=== PATIENT | male | born 1950 | race Caucasian/White ===

== ENCOUNTER 2018-01-24 18:15 | Emergency (ER) | payer OTHER, MEDICARE ==
[~2018-01-24] VITALS: Ht 180.3 cm; Wt 98.0 kg
[~2018-01-24 18:15] MED LIST: ASPI81CH PO; ATOR20 PO; Bactrim Ds Tab1 EACH PO; Keflex500 MG PO; LEVO750 PO; Lisinopril2.5 MG PO; METF500 PO; Zofran Odt4 MG SL
[2018-01-24 19:18] LABS: BASOPHILS ABSOLUTE AUTO 0.04 K/mm3 (0.00-0.23); BASOPHILS PERCENT AUTO 0 % (0-2); EOSINOPHILS ABSOLUTE AUTO 0.04 K/mm3 (0.00-0.68); EOSINOPHILS PERCENT AUTO 0 % (0-6); Hematocrit 41.8 % (37.0-53.0); IMMATURE GRAN ABSOLUTE AUTO 0.09 K/mm3 (0.00-0.10); IMMATURE GRAN PERCENT AUTO 1 % (0-1); LYMPHOCYTES ABSOLUTE AUTO 1.15 K/mm3 (0.84-5.20); LYMPHOCYTES PERCENT AUTO 8 % (21-46); MONOCYTES ABSOLUTE AUTO 1.45 K/mm3 (0.16-1.47); MONOCYTES PERCENT AUTO 9 % (4-13); Mean Corpuscular HGB 29.3 pg (26.0-34.0); Mean Corpuscular HGB Conc 33.5 g/dL (31.5-36.5); Mean Corpuscular Volume 87 fL (80-100); Mean Platelet Volume 9.7 fL (9.1-12.4); NEUTROPHILS ABSOLUTE AUTO 12.66 K/mm3 (1.96-9.15); NEUTROPHILS PERCENT AUTO 82 % (41-73); Platelet Count 223 K/mm3 (150-400); RDW Coefficient Variation 12.7 % (11.7-14.2); RDW Standard Deviation 40.8 fL (35.1-46.3); Red Blood Cell Count 4.78 M/mm3 (4.30-5.90); White Blood Cell Count 15.43 K/mm3 (4.00-11.30)
[2018-01-24 19:39] LABS: Alanine Aminotransfer (ALT/SGP 29 U/L (12-78); Albumin, Blood 3.7 g/dL (3.4-5.0); Albumin/Globulin Ratio 0.9 (0.8-1.8); Alk Phos 92 U/L (50-136); Anion Gap 9 mmol/L (6-16); Aspartate Aminotrans (AST/SGOT 20 U/L (12-37); Bilirubin, Total 0.8 mg/dL (0.1-1.0); Blood Urea Nitrogen 12 mg/dL (8-24); Bun/Creatinine Ratio 15.7 (12.0-20.0); CO2, Blood 25 mmol/L (21-32); Chloride, Blood 101 mmol/L (98-108); Creatinine, Blood 0.77 mg/dL (0.60-1.20); Globulin, Blood 3.9 g/dL (2.2-4.0); Glomerular Filtration Rate >60 (60-); Glucose, Blood 190 mg/dL (70-99); Potassium, Blood 3.9 mmol/L (3.5-5.5); Sodium, Blood 135 mmol/L (136-145); Total Protein, Blood 7.6 g/dL (6.4-8.2)
[2018-01-24 21:12] LABS: Source, Urine Clean Catch
[2018-01-24 21:15] LABS: Appearance, Urine Hazy (Clear); Bilirubin, Urine Neg (Neg); Blood, Urine 3+ (Neg); Color, Urine Yellow (P-Yellow); Glucose Qualitative, Urine Neg (Neg); Ketones, Urine 2+ (Neg); Leukocyte Esterase, Urine 3+ (Neg); Nitrite, Urine Pos (Neg); Protein, Urine 2+ (Neg); Specific Gravity, Urine 1.015 (1.003-1.022); Urobilinogen, Urine 2+ (Normal)
[2018-01-24 21:20] LABS: Bacteria Many /hpf; Red Blood Cells, Urine 0-2 /hpf (0-2); Squamous Epithelial Cells Few /hpf (Few)
[2018-01-24 21:21] LABS: Uric Acid Crystals Many /hpf
[2018-01-24] MEDS ORDERED: CIPR500 PO (21:50)
== END 2018-01-24 22:00 | disposition home or self-care (01) ==
LOC: ER 18:15
PROVIDERS: Emergency Medicine
DX: N12 Tubulo-interstitial nephritis, not specified as acute or chronic (principal); E11.9 Type 2 diabetes mellitus without complications
CPT/HCPCS: 36415; 74176; 80053; 81001; 83690; 85025; 87077; 87086; 87186; 93005; 93010; 99284

== ENCOUNTER 2020-11-29 06:17 | Day surgery (SDC) | payer OTHER, MEDICARE ==
[~2020-11-29] VITALS: Ht 180.3 cm; Wt 91.0 kg
[~2020-11-29 06:17] MED LIST changes: +Aspir 8181 MG PO; +CIPR500 PO; +ESCI10 PO; +JARDIANCE10 MG PO; +METO25ER PO; +NITROGLYCERIN0.4 M1 SL
== END 2020-11-29 08:19 | disposition home or self-care (01) ==
LOC: ORSCSDS 06:17
PROVIDERS: Surgery
PROC: 0DBM8ZX Excision of Descending Colon, Via Natural or Artificial Opening Endoscopic, Diagnostic (ICD-10-PCS; principal; 2020-11-29 07:30)
DX: R19.4 Change in bowel habit (principal); D12.4 Benign neoplasm of descending colon; Z86.010 Personal history of colon polyps; K57.30 Diverticulosis of large intestine without perforation or abscess without bleeding; E11.9 Type 2 diabetes mellitus without complications; I10 Essential (primary) hypertension; I25.10 Atherosclerotic heart disease of native coronary artery without angina pectoris; Z79.82 Long term (current) use of aspirin; Z79.84 Long term (current) use of oral hypoglycemic drugs; Z79.899 Other long term (current) drug therapy
CPT/HCPCS: 82947; 88305; J0461; J2405; J2704; J7120

== ENCOUNTER → 2020-12-10 | Outpatient (CLI) | payer OTHER, MEDICARE | END | disposition home or self-care (01) | LOC: LAB 15:54 → LAB SHORT 15:54 | DX: D48.5 Neoplasm of uncertain behavior of skin (principal) | CPT/HCPCS: 88305 ==

== ENCOUNTER → 2021-01-28 | Outpatient (CLI) | payer OTHER, MEDICARE | END | disposition home or self-care (01) | LOC: LAB SHORT 14:49 → LAB 14:49 | DX: D48.5 Neoplasm of uncertain behavior of skin (principal) | CPT/HCPCS: 88305 ==

== ENCOUNTER 2023-12-04 04:29 | Emergency (ER) | payer MEDICARE ==
[~2023-12-04] VITALS: Ht 172.7 cm; Wt 90.7 kg
[2023-12-04] MEDS ORDERED: Amaryl1 MG PO (05:02)
[2023-12-04] MEDS ORDERED: OZEMPIC2 MG/0.75 SQ (05:02)
[2023-12-04 05:03] LABS: Source, Urine Clean Catch
[2023-12-04] MEDS ORDERED: OMEP20ER PO (05:03)
[2023-12-04 05:07] LABS: BASOPHILS ABSOLUTE AUTO 0.09 K/mm3 (0.00-0.23); BASOPHILS PERCENT AUTO 1 % (0-2); EOSINOPHILS ABSOLUTE AUTO 0.11 K/mm3 (0.00-0.68); EOSINOPHILS PERCENT AUTO 1 % (0-6); Hematocrit 50.9 % (37.0-53.0); Hemoglobin 16.7 g/dL (13.5-17.5); IMMATURE GRAN ABSOLUTE AUTO 0.12 K/mm3 (0.00-0.10); IMMATURE GRAN PERCENT AUTO 1 % (0-1); LYMPHOCYTES ABSOLUTE AUTO 2.24 K/mm3 (0.84-5.20); LYMPHOCYTES PERCENT AUTO 12 % (21-46); MONOCYTES ABSOLUTE AUTO 0.96 K/mm3 (0.16-1.47); MONOCYTES PERCENT AUTO 5 % (4-13); Mean Corpuscular HGB 29.9 pg (26.0-34.0); Mean Corpuscular HGB Conc 32.8 g/dL (31.5-36.5); Mean Corpuscular Volume 91 fL (80-100); Mean Platelet Volume 10.6 fL (9.1-12.4); NEUTROPHILS ABSOLUTE AUTO 14.91 K/mm3 (1.96-9.15); NEUTROPHILS PERCENT AUTO 81 % (41-73); Platelet Count 249 K/mm3 (150-400); RDW Coefficient Variation 12.7 % (11.7-14.2); RDW Standard Deviation 42.4 fL (35.1-46.3); Red Blood Cell Count 5.58 M/mm3 (4.30-5.90); White Blood Cell Count 18.43 K/mm3 (4.00-11.30)
[2023-12-04 05:08] LABS: Appearance, Urine Clear (Clear); Bilirubin, Urine Neg (Neg); Blood, Urine 2+ (Neg); Glucose Qualitative, Urine 4+ (Neg); Ketones, Urine 1+ (Neg); Leukocyte Esterase, Urine 1+ (Neg); Nitrite, Urine Neg (Neg); Protein, Urine Neg (Neg); Urobilinogen, Urine NORM (Normal)
[2023-12-04 05:19] LABS: Albumin, Blood 4.1 g/dL (3.4-5.0); Albumin/Globulin Ratio 1.2 (0.8-1.8); Bilirubin, Total 0.6 mg/dL (0.1-1.0); Bun/Creatinine Ratio 21.8 (12.0-20.0); Creatinine, Blood 0.78 mg/dL (0.60-1.20); Globulin, Blood 3.4 g/dL (2.2-4.0); Potassium, Blood 4.4 mmol/L (3.5-5.5); Total Protein, Blood 7.5 g/dL (6.4-8.2)
[2023-12-04 05:23] LABS: Color, Urine Pale Yellow (P-Yellow)
[2023-12-04 05:25] LABS: Bacteria Few /hpf; Squamous Epithelial Cells Few /hpf (Few)
[2023-12-04 05:45] LABS: Influenza A, PCR NEGATIVE (NEGATIVE); Influenza B, PCR NEGATIVE (NEGATIVE); Resp Syncytial Virus, PCR NEGATIVE (NEGATIVE); SARS-Cov-2 (COVID-19) PCR, MMC NEGATIVE (NEGATIVE)
[2023-12-04] MEDS ORDERED: CEFP200 PO (08:43)
[2023-12-04 09:00] VITALS: BP 117/58
[2023-12-04] MEDS ORDERED: PROMETHAZINE12.5 M1 PT (09:31)
== END 2023-12-04 09:27 | disposition home or self-care (01) ==
LOC: ER 04:29
PROVIDERS: Emergency Medicine
DX: N39.0 Urinary tract infection, site not specified (principal); Z87.442 Personal history of urinary calculi; Z11.52 Encounter for screening for COVID-19; I10 Essential (primary) hypertension; E11.9 Type 2 diabetes mellitus without complications; I25.10 Atherosclerotic heart disease of native coronary artery without angina pectoris; E78.5 Hyperlipidemia, unspecified; E78.00 Pure hypercholesterolemia, unspecified; Z79.84 Long term (current) use of oral hypoglycemic drugs; Z79.82 Long term (current) use of aspirin; Z79.899 Other long term (current) drug therapy
CPT/HCPCS: 0241U; 74177; 80053; 81001; 83690; 85025; 87086; 93005; 93010; 96374-59; 96375; 99285-25; J1885; J2405; J2765; Q9967

== ENCOUNTER 2025-10-25 08:50 | Day surgery (SDC) | payer MEDICARE ==
[2025-10-25] VITALS (11 sets, daily range): BP systolic 131–140; BP diastolic 71–85
[~2025-10-25] VITALS: Ht 180.3 cm; Wt 90.6 kg
[~2025-10-25 08:50] MED LIST changes: +Amaryl1 MG PO; +CEFP200 PO; +CeFAZolin Sodium 2,000 MG in NS 100 ML IV SCH; +Chlorhexidine Mouth Care 15 ML UDC MT SCH; +FISH OIL 1,0001 EA10 PO; +LEVSOD112 PO; +OMEP20ER PO; +OZEMPIC2 MG/0.75 SQ; +PROMETHAZINE12.5 M1 PT; +Ropivacaine 0.5% HCl/Pf 123.125 MG,EPINEPHrine HCL 0.25 MG,Ketorolac Tromethamine 15 MG... INFIL SCH; +Tranexamic Acid 100 ML IV SCH; +VITAMIN D350 MC3 PO
[2025-10-25] MEDS ORDERED: OZEMPIC0.25 MG/02 SQ (09:07)
[2025-10-25] MEDS ORDERED: Magnesium Hydroxide Conc 10 ML UDC PO PRN (10:25)
[2025-10-25] MEDS ORDERED: Ondansetron HCl 2 MG / ML 2ML Vial IV PRN ×2 (10:25→11:45)
[2025-10-25] MEDS ORDERED: HYDROmorphone HCl/Pf 1MG SYR IV PRN ×3 (10:25→11:45)
[2025-10-25] MEDS ORDERED: Metoclopramide HCl 5MG / ML 2ML Vial IV PRN (10:25)
[2025-10-25] MEDS ORDERED: FLU VACC TS2025(65UP)/MF59C/PF 45 MCG/0.5 ML SYRINGE IM SCH (10:30)
[2025-10-25] MEDS ORDERED: Midazolam HCl 1MG / ML 2ML Vial ONE (10:51)
[2025-10-25] MEDS ORDERED: ePHEDrine Sulfate 50 MG/ML 1ML Injection ONE (11:30)
[2025-10-25] MEDS ORDERED: Insulin Regular 100 UNIT/ML 10ML Vial SC SCH (11:30)
[2025-10-25] MEDS ORDERED: FentaNYL Citrate 50 MCG/ML 2 ML Injection IV PRN ×2 (11:45→11:50)
--- NOTE | 2025-10-25 16:30 | NUR ---
P.t is awake in bed whenhe welcomes my visit. Pt. is pleasant. Facilitated a life review and considered matters of parviz and belief. Pt. verbalized an expectation that he may go home this evening. Pt. displayed evidence of having his spirits uplifted and verbalized gratitude fo rthe spiritual care visit.
[2025-10-25] MEDS ORDERED: ACET500 PO (16:36)
[2025-10-25] MEDS ORDERED: OXAYDO5 M1 PO (16:37)
[2025-10-25] MEDS ORDERED: ONDA4ODT MM (16:38)
[2025-10-25] MEDS ORDERED: XARELTO20 MG PO (16:38)
[2025-10-25] MEDS ORDERED: SULTRIDS PO (16:38)
[2025-10-25] MEDS ORDERED: MetFORMIN HCl 500 mg PO SCH (17:00)
--- NOTE | 2025-10-25 17:49 | NUR ---
ASSUMED CARE OF PT @1450 AXO4. SENSATION INTACT. COLDPACK INPLACE. TELFA/TEGADERM IN PLACE - CDI. ACEWRAP IN PLACE. TXA INFUSED X2 DOSES PRE ADMISSION. 1L LR INFUSED. PT VOIDED. TOLERATED FULL DINNER TRAY. DENIES NAUSEA. PT HAS DENIED NEED FOR PAIN MEDS. WANTING TO GO HOME. STOOD AND AMBULATED THE HALLWAY TWICWE WITH RNS. INSTRUCTIONS PROVIDED TO PT. DC INSTRUCTIONS PRINTED OUT. EDUCATED PATIENT AND SPOUSE REGARDING POSTOP REGIMEN. PROVIDED WITH PRN USE AQUACEL IF NEEDED AT HOME. BELONGINGS PACKED UP ALONG WITH COLD PACK. IV PULLED. PT GETTING DRESSED. AWAITING CLARIFICATION FOR DR LEE REGARDING ASPIRIN AND XARELTO CONCURRENT ORDER - AWAITING ANSWER AND THEN PT WILL BE DC'D.
[2025-10-25] MEDS ORDERED: Ketorolac Tromethamine 15mg Vial IV SCH (18:00)
--- NOTE | 2025-10-25 18:07 | NUR ---
DC'D VIA WHEELCHAIR TO VEHICLE @1800
[2025-10-25] MEDS ORDERED: CeFAZolin Sodium 2,000 MG in NS 100 ML IV SCH (19:30)
[2025-10-26] MEDS ORDERED: Trimethoprim/Sulfamethoxazole DS Tab PO SCH (09:00)
== END 2025-10-25 18:00 | disposition home or self-care (01) ==
LOC: ORSCMMR 08:50 → ORD 10:45 → SURS 14:58 → ORSCMMR 18:00
PROVIDERS: Orthopaedic Surgery
PROC: 0SRD0JA Replacement of Left Knee Joint with Synthetic Substitute, Uncemented, Open Approach (ICD-10-PCS; principal; 2025-10-25 10:45)
DX: M17.12 Unilateral primary osteoarthritis, left knee (principal); I10 Essential (primary) hypertension; I25.10 Atherosclerotic heart disease of native coronary artery without angina pectoris; G47.33 Obstructive sleep apnea (adult) (pediatric); E11.9 Type 2 diabetes mellitus without complications; K21.9 Gastro-esophageal reflux disease without esophagitis; Z79.84 Long term (current) use of oral hypoglycemic drugs; Z79.899 Other long term (current) drug therapy; Z79.82 Long term (current) use of aspirin; Z85.46 Personal history of malignant neoplasm of prostate; Z79.85 Long-term (current) use of injectable non-insulin antidiabetic drugs; E78.00 Pure hypercholesterolemia, unspecified
CPT/HCPCS: 73560-LT; 82947; A9270; C1713; C1776; J0166; J0690; J0735; J1885; J2250; J2704; J2795; J3373; J7050; J7120